=== PATIENT | male | born 1950 | race African-American/Black ===

== ENCOUNTER 2019-09-20 13:52 | Outpatient (CLI) | payer OTHER ==
--- NOTE | 2019-09-20 15:01 | PET ---
Radionucleotide PET scan with CT attenuation correction HISTORY: Rectal carcinoma. Initial staging. HISTORY: Physiologic uptake of radiotracer throughout the enteric system and along each urinary tract . Associated with the large rectal mass. Maximum SUV equals 14.9. No other abnormal areas of hypermetab olic activity are apparent. Slightly increased muscular uptake associated with the posterior paraspinal musculature and the pelvi c musculature. Nondiagnostic CT attenuation correction images show hyperdense stones in the gallbladder lumen. Diver ticula arise from the colon without adjacent inflammation. Bovine origin of the great vessels at the aortic arch. Prominent degenerative changes of the lumbar spine. IMPRESSION: Rectal carcinoma. No evidence of metastatic disease. Cholelithiasis. Diverticulosis.
== END 2019-09-20 13:53 | disposition home or self-care (01) ==
LOC: PET 13:52
PROVIDERS: ATTEND Internal Medicine Hematology & Oncology
DX: C20 Malignant neoplasm of rectum (principal); K80.20 Calculus of gallbladder without cholecystitis without obstruction; K57.92 Diverticulitis of intestine, part unspecified, without perforation or abscess without bleeding
CPT/HCPCS: 78815; A9552